=== PATIENT | male | born 1960 | race Caucasian/White ===

== ENCOUNTER → 2016-07-03 | Outpatient (CLI) | payer OTHER ==
[2016-07-03 13:44] LABS: BLOOD GAS CARBOXYHEMOGLOBIN 1.3 % (0-4); BLOOD GAS HCO3 26 mmol/L (22-26); BLOOD GAS METHEMOGLOBIN 1.2 % (0-2); BLOOD GAS O2 HGB SATURATION 92 % (90-100); BLOOD GAS OXYGEN CONTENT 16.9 Vol % (12.0-20.0); BLOOD GAS PCO2 43 mmHg (38-42); BLOOD GAS PO2 74 mmHg (61-120); CRITICAL VALUE NO; DRAW SITE RT RADIAL; FIO2 21 %; NUMBER OF ARTERIAL PUNCTURES 1; STAT NO; TEMP CORR TO 98.6; ULNAR PULSE PRESENT
--- NOTE | 2016-07-03 14:26 | RADRPT ---
EXAM DATE/TIME: 07/03/2016 14:06 [place] COMPARISON: No previous studies available for comparison. INDICATIONS : Short of breath. MEDICAL HISTORY : Chronic obstructive pulmonary disease. SURGICAL HISTORY : None. ENCOUNTER: Initial ACUITY: 1 day PAIN SCORE: 0/10 LOCATION: Bilateral chest FINDINGS: Frontal and lateral views of the chest demonstrate a normal size cardiac silhouette. Lungs are hyperi nflated with flattening of the hemidiaphragms and an enlarged retrosternal airspace. Lucency is prese nt in the upper lung zones. No effusion, consolidation, or pneumothorax is visualized. The bones and soft tissues demonstrate no acute finding. CONCLUSION: Emphysema. No acute cardiopulmonary abnormality is identified. Luis Mendes MD on July 03, 2016 at 14:23 Board Certified Radiologist. This report was verified electronically.
--- NOTE | 2016-07-06 10:57 | RSPPFT ---
DATE OF PROCEDURE: 07/03/16 COMMENTS: Spirometry shows FVC of 1.6 at 32% of predicted, FEV1 of 0.5 at 15%, FEV1/FVC ratio is decreased. Flow is decreased at FEF 25, FEF 50, FEF 75 and FEF 25-75. There is no significant response after bronchodilator treatment. Lung volumes show residual volume is increased. TLC is normal. Flow volume loop indicates an obstructive pattern. Room air arterial blood gases show pH of 7.41, PCO2 of 43, PO2 of 74, BiCarb of 26 and O2 Saturation at 92%. IMPRESSION: 1. Very severe obstructive lung disease. 2. No response after bronchodilator treatment. 3. Lung volumes show hyperinflation and air trapping. 4. Blood gases show mild hypoxia.
== END ==
LOC: HRSP 12:21 → EDBD 12:21
PROVIDERS: ATTEND Specialist
DX: J44.9 Chronic obstructive pulmonary disease, unspecified (principal)
CPT/HCPCS: 36600; 71020; 82805; 94060; 94726

== ENCOUNTER → 2016-10-27 | Outpatient (CLI) | payer OTHER | LOC: HRSP 14:28 | PROVIDERS: ATTEND Specialist | DX: J44.9 Chronic obstructive pulmonary disease, unspecified (principal) | CPT/HCPCS: 94620 ==